=== PATIENT | female | born 1985 | race Asian ===

== ENCOUNTER 2019-04-14 11:22 | Emergency (ER) | payer OTHER ==
--- OUTSIDE RECORDS SUMMARY | 2019-04-14 11:43 | XMS REPORT | Continuity of Care Document ---
:1985 External Reference #:[id number] Author Name Minnie Christianson O.D. Address [address] [place] [address] Care Team Providers Name Role Phone Minnie Christianson O.D. Care Team Information Electro Mechanical Technician Unavailable Payers Date Identification Numbers Payment Provider Subscriber Policy Number: [id number] [employer] Ppo/Pos/Epo/Nap Stacie Fitzpatrick PayID: [id number] [address] [place] [address] Advance Directives Description No Information Available Problems Active Problems Provider Date Vitreous opacities Minnie Christianson O.D. 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 ETOH Use Denies alcohol use Tobacco Use Start: Unknown Patient has never smoked Recreational Drug Use Denies Drug Use Smoking Status Reviewed: 04/02/19 Patient has never smoked Allergies, Adverse Reactions, Alerts Description No Known Drug Allergies Medications Active Medications SIG Qnty Indications Ordering Provider Date Levothyroxine Sodium Unknown 75mcg Tablets Nature Made Pre Vitamin Unknown Immunizations Description No Information Available Vital Signs Description No Information Available Results Description No Information Available Procedures Description No Information Available Encounters Description No Information Available Plan of Treatment 04/02/2019 - Minnie Christianson O.D.H43.391 Other vitreous opacities, right eyeComments:You have Vitreous floaters in your right eye. Please read the pamphlet that was given to you. If you have any changes in your floaters or flashing lights, please contact this office.Follow up:1 Year Follow Up
[2019-04-14] MEDS ORDERED: NS 0.9% 1000 ML** 1,000 ML IV ONE (11:54)
[2019-04-14] MEDS ORDERED: Metoclopramide IV* 5 MG/ML 2 ML VIAL IV ONE ×2 (11:54→14:04)
[2019-04-14 12:39] LABS: Hematocrit 36 % (35-47); Mean Corpuscular HGB Conc 33 g/dL (31-36); Mean Corpuscular Hemoglobin 31 pg (27-31); Mean Corpuscular Volume 94 fL (80-97); Platelet Count 244 10^3/uL (150-450); Red Blood Count 3.86 10^6 /uL (3.70-4.87); Red Cell Distribution Width 14 % (10.5-15); White Blood Count 11.1 10^3/uL (3.5-10.8)
[2019-04-14 12:54] LABS: Albumin 3.8 g/dL (3.2-5.2); Albumin/Globulin Ratio 1.3 (1-3); BUN/Creatinine Ratio 20.5 (8-20); C Reactive Protein 5.29 mg/L (<8.01); Calcium 8.9 mg/dL (8.6-10.3); EGFR African American 199.3 (>60); EGFR Non-African American 164.7 (>60); Potassium 3.6 mmol/L (3.5-5.0); Total Bilirubin 0.4 mg/dL (0.2-1.0); Total Protein 6.8 g/dL (6.4-8.9)
[2019-04-14 13:09] LABS: ABS Neutrophils 10.2 10^3/ul (1.5-7.7)
--- NOTE | 2019-04-14 13:09 | ED ---
- HPI Summary HPI Summary: Patient is a 33-year-old female presenting to the ED with nausea and vomiting since this morning. Patient is 29 weeks . Normal thus far. She does have SEARCH SPECIALIST here in [facility], however recently transferred her care to [facility] she is moving in 3 days. She states she awoke with nausea and vomiting. Denies abdominal pain. No vaginal bleeding or discharge. She states she has never had morning sickness and states this feels different. She did have something abnormal/exotic to eat this morning which was what she calls "birds nests." This is an exotic delicacy from [employer] which consists of bird saliva. She states she has had this in the past without issue. Denies any urinary symptoms or back pain. - History of Current Complaint Chief Complaint: EDNauseaVomitDiarrh Stated Complaint: 29 WKS PREG/VOMITING/POSS FOOD POISON PER PT Time Seen by Provider: 04/14/19 11:44 Hx Obtained From: Patient Onset/Duration: Started Hours Ago Timing: Constant Severity: Moderate Current Severity: Moderate Pain Intensity: 0 Location of Pain: None Character: None - Allergies/Home Medications Allergies/Adverse Reactions: Allergies Allergy/AdvReac Type Severity Reaction Status Date / Time No Known Allergies Allergy Verified 04/14/19 11:36 Home Medications: Home Medications Levothyroxine TAB* [Synthroid TAB*] 75 mcg PO DAILY 04/14/19 [History Confirmed 04/14/19] PMH/Surg Hx/FS Hx/Imm Hx Previously Healthy: Yes - Immunization History Hx Pertussis Vaccination: No Immunizations Up to Date: Yes Infectious Disease History: No Infectious Disease History: Denies: Traveled Outside the in Last 30 Days - Social History Occupation: Unemployed Lives: With Family Alcohol Use: None Hx Substance Use: No Substance Use Type: Reports: None Hx Tobacco Use: No Smoking Status (MU): Never Smoked Tobacco Review of Systems Constitutional: Negative Negative: Fever, Chills, Fatigue, Skin Diaphoresis Negative: Palpitations, Chest Pain Negative: Shortness Of Breath, Cough Positive: Vomiting, Nausea Positive: no symptoms reported, see HPI Negative: Arthralgia, Myalgia Skin: Negative Neurological: Negative All Other Systems Reviewed And Are Negative: Yes Physical Exam - Physical Exam Triage Information Reviewed: Yes Vital Signs Reviewed: Yes Appearance: Positive: Well-Appearing, Well-Nourished Skin: Positive: Warm, Skin Color Reflects Adequate Perfusion Head/Face: Positive: Normal Head/Face Inspection Eyes: Positive: EOMI, Conjunctiva Clear Neck: Positive: Supple, No Lymphadenopathy Respiratory/Lung Sounds: Positive: Clear to Auscultation, Breath Sounds Present Cardiovascular: Positive: RRR, Pulses are Symmetrical in both Upper and Lower Extremities Abdomen Description: Positive: Other: - fundus consistent with 28 week Musculoskeletal: Positive: Strength/ROM Intact Neurological: Positive: Sensory/Motor Intact, Speech Normal Psychiatric: Positive: Affect/Mood Appropriate AVPU Assessment: Alert Diagnostics - Vital Signs Vital Signs Temp Pulse Resp BP Pulse Ox 04/14/19 11:34 98.5 F 108 18 124/82 98 - Laboratory Lab Results: Lab Results 04/14/19 04/14/19 04/14/19 Range/Units 12:16 12:16 12:16 WBC 11.1 H (3.5-10.8) 10^3/uL RBC 3.86 (3.70-4.87) 10^6 /uL Hgb 12.0 (12.0-16.0) g/dL Hct 36 (35-47) % MCV 94 (80-97) fL MCH 31 (27-31) pg MCHC 33 (31-36) g/dL RDW 14 (10.5-15) % Plt Count 244 (150-450) 10^3/uL MPV 8.0 (7.4-10.4) fL Neut % (Auto) Pending Lymph % (Auto) Pending [place] % (Auto) Pending Eos % (Auto) Pending Baso % (Auto) Pending Absolute Neuts (auto) Pending Absolute Lymphs (auto) Pending Absolute Monos (auto) Pending Absolute Eos (auto) Pending Absolute Basos (auto) Pending Absolute Nucleated RBC Pending Nucleated RBC % Pending Sodium 135 (135-145) mmol/L Potassium 3.6 (3.5-5.0) mmol/L Chloride 103 (101-111) mmol/L Carbon Dioxide 23 (22-32) mmol/L Anion Gap 9 (2-11) mmol/L BUN 9 (6-24) mg/dL Creatinine 0.44 L (0.51-0.95) mg/dL Est GFR ( Amer) 199.3 (>60) Est GFR (Non-Af Amer) 164.7 (>60) BUN/Creatinine Ratio 20.5 H (8-20) Glucose 84 (70-100) mg/dL Lactic Acid 1.2 (0.5-2.0) mmol/L Calcium 8.9 (8.6-10.3) mg/dL Total Bilirubin 0.40 (0.2-1.0) mg/dL AST 19 (13-39) U/L ALT 8 (7-52) U/L Alkaline Phosphatase 108 H (34-104) U/L C-Reactive Protein 5.29 (<8.01) mg/L Total Protein 6.8 (6.4-8.9) g/dL Albumin 3.8 (3.2-5.2) g/dL Globulin 3.0 (2-4) g/dL Albumin/Globulin Ratio 1.3 (1-3) Lipase 17 (11.0-82.0) U/L Result Diagrams: 04/14/19 12:16 04/14/19 12:16 Lab Statement: Any lab studies that have been ordered have been reviewed, and results considered in the medical decision making process. Course/Dx - Course Course Of Treatment: Patient is given 1 L fluids and Reglan IV on arrival. Labs are obtained. heart tones obtained and is between 135 and 145. Patient continues to feel somewhat nauseous, but denies any vomiting after first round of Reglan given. She is given another 10 mL Reglan approximately 2 hours after arrival. This improved her symptoms. She states she is currently asymptomatic and feels well. Labs obtained and are WNL. She'll be discharged home with nausea and vomiting in and is given a prescription for Reglan. Discussed with the patient this could be related to her in terms of morning sickness, however could also have been from something she ate this morning. - Differential Diagnosis/HQI/PQRI: Other: - Nausea and vomiting in , gastroenteritis, food poisoning, allergic reaction to food - Diagnoses Provider Diagnoses: Nausea and vomiting in Discharge - Sign-Out/Discharge Documenting (check all that apply): Patient Departure Patient Received Moderate/Deep Sedation with Procedure: No - Discharge Plan Condition: Stable Disposition: HOME Prescriptions: Metoclopramide TAB* [Reglan TAB*] 10 mg PO Q6H PRN #12 tab PRN Reason: Nausea Patient Education Materials: Nausea and Vomiting in (ED) Referrals: No Primary Care Phys,NOPCP [Primary Care Provider] - Additional Instructions: Reglan as needed up to 4 times daily This is for nausea and vomiting Safe in Drink plenty of water and eat bland foods today If you develope worsening or changing symptoms despite the Reglan, return to the ED - Billing Disposition and Condition Condition: STABLE Disposition: Home
[2019-04-14 14:57] VITALS: BP 110/62
[2019-04-14 15:43] LABS: Urine Appearance Cloudy; Urine Bacteria Absent (Absent); Urine Bilirubin Negative (Negative); Urine Blood Negative (Negative); Urine Color Yellow; Urine Glucose Negative (Negative); Urine Ketones 2+ (Negative); Urine Nitrite Negative (Negative); Urine Protein 1+(30 mg/dL) (Negative); Urine Red Blood Cell Absent (Absent); Urine Specific Gravity 1.021 (1.010-1.030); Urine Squamous Epithelial Cell Present (Absent); Urine Urobilinogen Negative (Negative); Urine White Blood Cell Absent (Absent)
== END 2019-04-14 14:56 | disposition home or self-care (01) ==
LOC: ED 11:22
DX: O21.0 Mild hyperemesis gravidarum (principal); Z3A.28 28 weeks gestation of pregnancy
CPT/HCPCS: 36415; 80053; 81003; 81015; 83605; 83690; 85025; 86140; 96361; 96374; 96376; 99283; J2765